=== PATIENT | female | born 1995 | race Caucasian/White ===

== ENCOUNTER → 2020-01-20 | Outpatient (CLI) | payer OTHER ==
[~2020-01-20] MED LIST: INSULIN LISPRO; LANTUS100 U/ML SC; NORCOELIX PO; NOVOLOG 100U100 U/M1 SC; TYLENOL 325MG325 MG PO
== END ==
LOC: MC.RAD 07:00
DX: N60.02 Solitary cyst of left breast (principal)